=== PATIENT | female | born 1975 | race Caucasian/White ===

== ENCOUNTER 2017-08-09 20:26 | Emergency (ER) | payer SELFPAY ==
[~2017-08-09] VITALS: Ht 167.6 cm; Wt 72.6 kg
[2017-08-09] MEDS ORDERED: IV NORMAL SALINE 1,000ML 1,000 ML IV ONE ×2 (20:45)
[2017-08-09] MEDS ORDERED: THIAMINE 100 MG TABLET. PO ONE (21:00)
[2017-08-09] MEDS ORDERED: ALPRAZolam 0.25 MG TABLET PO ONE (21:15)
[2017-08-09 21:39] LABS: CALCIUM 8.7 mg/dL (8.5-10.1); CREATININE 0.9 mg/dL (0.6-1.0); GFR 69.3; POTASSIUM 3.3 mmol/L (3.5-5.1)
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
[2017-08-09] MEDS ORDERED: ACETAMINOPHEN 500 MG TABLET PO ONE (23:15)
[2017-08-09] MEDS ORDERED: ONDANSETRON PF 4 MG/2 ML VIAL. IV ONE ×2 (23:30)
[2017-08-09] MEDS ORDERED: LORazepam 2 MG/ML VIAL IV ONE (23:45)
[2017-08-09] MEDS ORDERED: KETOROLAC 15 MG/ML VIAL. IV ONE (23:45)
[2017-08-10] MEDS ORDERED: ONDA4TAB10 SL (00:46)
--- NOTE | 2017-08-10 01:02 | EKG ---
[address] [address] Test Date: 2017-08-09 Test Time: 21:03:07 Pat Name: DALILA GREENE Department: Room: Gender: F Telephonic Case Manager: : [id number] Requested By: SYDNI VUONG Order Number: [id number] Reading MD: Fernando Ovalle MD Measurements Intervals [place] Rate: 122 P: -52 MT: 126 QRS: 19 QRSD: 80 T: 52 QT: 354 QTc: 506 Interpretive Statements SINUS TACHYCARDIA Electronically Signed On 08-14-2017 10:16:07 CDT by Fernando Ovalle MD
[2017-08-10 02:17] LABS: BARBITURATES NEG (NEG); BENZODIAZEPINES NEG (NEG); CANNABINOIDS POS (NEG); COCAINE NEG (NEG); METHADONE NEG (NEG); OPIATES POS (NEG); PHENCYCLIDINE NEG (NEG)
[2017-08-10 02:19] LABS: AMPHETAMINE/METHAMPHETAMINE POS (NEG)
[2017-08-10 04:49] VITALS: BP 153/87
== END 2017-08-10 04:59 | disposition home or self-care (01) ==
LOC: ER 20:26
DX: F10.129 Alcohol abuse with intoxication, unspecified (principal); E86.0 Dehydration; R00.0 Tachycardia, unspecified; F41.9 Anxiety disorder, unspecified; R45.851 Suicidal ideations; M79.7 Fibromyalgia; E78.00 Pure hypercholesterolemia, unspecified; F12.10 Cannabis abuse, uncomplicated; Z88.6 Allergy status to analgesic agent; Z88.8 Allergy status to other drugs, medicaments and biological substances
CPT/HCPCS: 36415; 80048; 80307; 93005; 96361; 96374; 96375; 99285; J1885; J2060; J2405; G0479; J7030